=== PATIENT | male | born 1950 | race Caucasian/White ===

== ENCOUNTER 2022-09-13 09:22 | Outpatient (CLI) | payer MEDICARE, OTHER ==
--- NOTE | 2022-09-13 10:22 | SLEEP CARE CONSULTATION ---
Information from patient questionnaire entered by Gita Ac. I have reviewed and concur with the information entered by Gita Ac. This document represents the service I personally performed and the decisions made by me, Brittni Xiao ARNP. History of Present Illness Service Date and Time: 09/13/2022921 Reason for Visit: New patient, Previously diagnosed sleep apnea, sleep apnea on CPAP therapy Chief Complaint: reports: Snoring, Observed pauses in breathing, Frequent awakenings at night Usual bedtime: 10 PM Time it takes to fall asleep: 10-20 minutes Snores at night: Yes Observed to quit breathing while asleep: Yes Sleeps alone due to snoring: No Number of times waking at night: 2-3 Reasons for waking at night: reports: Snoring, Bathroom Toss, Turn, or Twitch while sleeping: Yes Recalls having dreams: Yes Usually gets out of bed at: 6AM Feels refreshed in the morning: No Morning headache: No Sleepy or fatigued during the day: No Ever fallen asleep while driving: No Takes day naps: No Dreams during day naps: No Prior sleep studies: Yes Year and Where: 2018 [facility] in [place], [place] Additional HPI information: URI DAVID was previously diagnosed on 01/29/[address] [facility] in [place], [place] to have moderate, AHI 24.7, obstructive sleep apnea-hypopnea syndrome and comes in today to establish care for CPAP therapy. - Parasomnia Symptoms Ever been unable to move upon waking from sleep: No Walks in sleep: No Talks in sleep: No Ever acted out dreams in sleep: No Ever felt weak in the knees when startled or emotional: No Bothered by creepy, crawly, restless sensations in legs: No Problems with memory or concentration: Yes CPAP Compliance Data - Data Reviewed with Patient Average duration of nightly device use: 4 hours 30 minutes Compliance rate %: 60 (82/82 days used) Current pressure setting (cmH2O): 8 Average residual AHI: 9.9 Central apnea: 3.6 Obstructive apnea: 2.6 Hypopnea: 3.5 Average large leak: 2.1 L/min Compliance data discussion: He is using a Resmed Airsense 10 that was s/u 2019. He is getting his supplies from [employer] He is using the nasal cushion, P10. Subjective Missed days of use due to: reports: mask issues (mouth dryness sometimes too much to put mask back on) Patient concerns: reports: mask discomfort, dry mouth, nose, throat (since having covid infection 1 month ago). denies: aerophagia, air blowing in eyes, mask leak noise, condensation in mask/hose, nasal congestion, epistaxis Observed to snore while using device: No Current pressure setting perceived as: comfortable On therapy, patient: reports: sleeping better, awakening more refreshed (if able to get 6+ hours of sleep). denies: drowsiness while driving Initial [place] Sleepiness Scale score: 3 (09/13/2022) Past Medical History Past Medical History: reports: Hypertension, Other (prostatectomy) Social History The patient's occupation is a RE. Patient is and lives in . Have you smoked in the past 12 months: No Alcohol use: Yes Alcohol amount and frequency: 1 glass 3 x a week Caffeine use: Yes Caffeine amount and frequency: 1 cup decaf in morning Family History Family history of sleep disordered breathing: No Allergies and Home Medications Known drug allergies: No Drug allergies reviewed: Yes Home medication list reviewed: Yes Allergy and home medication list: Medications: Losartan potassium-HCTZ 100-25 mg daily Amlodipine Besylate 10 mg daily Atorvastatin Calcium 10 mg daily Review of Systems Weight loss over past 5 years: 9 lb loss Cardiovascular: reports: high blood pressure, leg or foot swelling (due to meds) Respiratory: denies: shortness of breath Gastrointestinal: denies: heartburn Neurological: denies: headaches Psychiatric: reports: anxiety, depression Physical Exam Vital signs obtained and entered by: GITA Peng MA Blood Pressure: 122/70 (LEFT ARM) Cuff size: regular Heart Rate: 55 O2 Saturation: 97 Height: 5 ft 10 in Weight: 201 lb 3.2 oz Body Mass Index: 28.8 BMI Classification: Overweight Neck circumference: 17 Heart: regular rate and rhythm Lungs: clear bilaterally Impression and Plan 1. Obstructive Sleep Apnea-Hypopnea Syndrome, moderate, with fair treatment compliance and fair apnea control with elevated residual AHI. On CPAP therapy, the patient has better sleep quality and is more rested overall. The patients pressure will be changed to autoCPAP 9 cmH20 for elevation of residual AHI. Patient advised to contact me if pressure change is uncomfortable so that it can be adjusted. Goals for apnea control discussed. Patient's apnea severity and rationale for treatment to reduce apnea, improve sleep quality and reduce cardiovascular and cerebrovascular events was reviewed. I also reviewed the benefit of consistent device use of CPAP for hypertension. 2. Overweight, unspecified. Currently patients BMI is 28.8. Obesity increases the risk of apnea, CPAP pressure requirements and overall health risks especially cardiovascular and diabetes. Thus patient is advised to lose weight. * Change auto CPAP pressure to 9 cmH2O * Update supplies * Notify me if snoring with mask or feeling that the pressure is too much or too little * Attempt to lose weight * Call this office if any problems using CPAP * Return for follow up in 1 year, or sooner if concerns arise Counseling Topics: Weight loss health impact Visit Type: In Office Time Spent with Patient (minutes): 33 Provider Statement: I spent 100% of the Face to Face Visit with the patient with greater than 50% spent counseling the patient and coordination of care.
[2022-09-13 10:23] VITALS: BP 122/70
== END 2022-09-13 09:23 | disposition home or self-care (01) ==
LOC: SC 09:22
PROVIDERS: ATTEND Nurse Practitioner Family
DX: G47.33 Obstructive sleep apnea (adult) (pediatric) (principal); E66.3 Overweight; Z68.28 Body mass index [BMI] 28.0-28.9, adult
CPT/HCPCS: 99203; G0463; 99212

== ENCOUNTER 2023-09-17 12:27 | Outpatient (CLI) | payer MEDICARE, OTHER ==
--- NOTE | 2023-09-17 13:26 | Sleep Patient Instructions ---
Sleep Center Visit Summary - Patient Visit Information Reason for Visit: Annual Follow up - Patient Instructions Additional Instructions: You will continue with CPAP therapy with pressure changed to 5-9 cmH2O. A supply prescription will be updated with your DME. I have also written a referral for Dr. Hutchison for [facility] to look into Inspire Implant therapy. We encourage you to continue to try to lose weight. Please follow up with the sleep care office in 1 year. - Clinic Information Contact: [facility] [address] [place] [address] [email or web address] T: [phone]
--- NOTE | 2023-09-17 13:31 | SLEEP CARE CONSULTATION ---
Information from patient questionnaire entered by Gita Ac. I have reviewed and concur with the information entered by Gita Ac. This document represents the service I personally performed and the decisions made by me, Brittni Xiao ARNP. History of Present Illness Service Date and Time: 09/17/2023 1227 Previous diagnosis: Moderate, Obstructive Sleep Apnea-Hypopnea Syndrome AHI: 24.7 (2018) Reason for follow up: annual (LAST SEEN 08/2022) Equipment type: CPAP (RESMED AIRSENSE 10 AUTOSET SET UP DATE 1952) Equipment obtained from: Other ([employer]; getting supplies) Mask style: Nasal Mask brand: Resmed ([id number]) Backup mask available: Yes Last cushion change: 15 days Prior sleep studies: Yes Year and Where: 2018 [facility] in [place], [place] HPI additional information: URI DAVID was diagnosed to have moderate, AHI 24.7, obstructive sleep apnea- hypopnea syndrome and returned today for CPAP therapy annual follow-up. Sleep Study - Results Prior sleep studies: Yes Year and Where: 2018 [facility] in [place], [place] CPAP Compliance Data - Data Reviewed with Patient Average duration of nightly device use: 6 HRS 0 MINS Compliance rate %: 82 (09/17/23-09/15/23; 355/365 days used) Current pressure setting (cmH2O): 8.6 Average residual AHI: 9.0 Central apnea: 2.9 Obstructive apnea: 1.4 Hypopnea: 4.5 Average large leak: 0.8 L/min Subjective Patient concerns: reports: dry mouth, nose, throat (dry throat occasionally). denies: aerophagia, mask discomfort, air blowing in eyes, mask leak noise, condensation in mask/hose, nasal congestion, epistaxis Observed to snore while using device: Yes (occasionally) Current pressure setting perceived as: comfortable On therapy, patient: reports: being more awake and alert during the day, more rested overall, drowsiness while driving, other (feels needs CPAP for breathing but not sleeping well). denies: sleeping better Initial [place] Sleepiness Scale score: 3 (09/13/2022) Current [place] Sleepiness Scale score: 8 (09/17/23) Allergies and Home Medications Known drug allergies: No Drug allergies reviewed: Yes Home medication list reviewed: Yes (doxylamine succinate sleep aid) Allergy and home medication list: Allergies No Known Drug Allergies Allergy (Verified 09/15/23 09:25) Review of Systems Review of systems same as previous: Yes (NO CHANGE) Physical Exam Vital signs obtained and entered by: GITA Peng MA Blood Pressure: 155/78 (RIGHT ARM) Cuff size: regular Heart Rate: 57 O2 Saturation: 98 Height: 5 ft 10 in Weight: 205 lb Body Mass Index: 29.4 BMI Classification: Overweight Impression and Plan 1. Obstructive Sleep Apnea-Hypopnea Syndrome, moderate, with good treatment compliance and fair apnea control with elevated residual AHI. On CPAP therapy, the patient has better sleep quality and is more rested overall. He adjusted his pressure after our appointment because the pressure just felt too much. I advised him not to change his pressure and to let me know if he feels he needs further changes. The patients pressure will be changed to autoCPAP 5-9 cmH20 for elevation of residual AHI. Patient advised to contact me if pressure change is uncomfortable so that it can be adjusted. Goals for apnea control discussed. Patient's apnea severity and rationale for treatment to reduce apnea, improve sleep quality and reduce cardiovascular and cerebrovascular events was reviewed. I also reviewed the benefit of consistent device use of CPAP for hypertension. Patient asking about the Inspire implantable sleep apnea device. Patient informed that they would have to qualify for this type of therapy. A referral is needed for an ENT specialist who would evaluate if Inspire therapy is indeed right for them. Qualifications to be evaluated for Inspire therapy include a previous diagnosis of moderate to severe obstructive sleep apnea. They must also have tried, failed or have been unable to tolerate CPAP treatment. They should also have a BMI of 32 or less and do not have any other active implantable devices present (like a pacemaker). Patient will need to undergo a sleep endoscopy where they are put under light sedation and the airway is examined by an endoscope to determine the cause of their sleep apnea. If it is determined that Inspire therapy is right for them than they may proceed to implantation. He voiced understanding and asked for the referral to be placed so he can look into this alternative therapy for sleep apnea. 2. Overweight, unspecified. Currently patients BMI is 29.4. Obesity increases the risk of apnea, CPAP pressure requirements and overall health risks especially cardiovascular and diabetes. Thus patient is advised to lose weight. * Change auto CPAP pressure to 5-9 cmH2O * Update supply prescription * Referral for Inspire implant evaluation with Dr. Hutchison * Notify me if snoring with mask or feeling that the pressure is too much or too little * Attempt to lose weight * Call this office if any problems using CPAP * Return for follow up in 12 months, or sooner if concerns arise Counseling Topics: Spare mask, Weight loss health impact Prescriptions: Device supplies, Other (Referral for Dr. Hutchison) Follow up with Sleep Care in: 1 year Visit Type: In Office Time Spent with Patient (minutes): 29 Provider Statement: I spent 100% of the Face to Face Visit with the patient with greater than 50% spent counseling the patient and coordination of care.
[2023-09-17 13:40] VITALS: BP 155/78; O2SAT 98
== END 2023-09-17 12:28 | disposition home or self-care (01) ==
LOC: SC 12:27
PROVIDERS: ATTEND Nurse Practitioner Family
DX: G47.33 Obstructive sleep apnea (adult) (pediatric) (principal); E66.3 Overweight; Z68.29 Body mass index [BMI] 29.0-29.9, adult
CPT/HCPCS: 99213; G0463; 99212